=== PATIENT | male | born 1950 | race Caucasian/White ===

== ENCOUNTER 2019-07-25 17:38 | Observation (INO) | payer BC, OTHER, SELFPAY ==
[2019-07-25 18:32] LABS: #Eosinphils 0.1 thou/uL (0.0-0.7); #Lymphocytes 0.6 thou/uL (1.20-3.40); #Monocytes 0.6 thou/uL (0.11-0.59); #Neutrophils 3.8 thou/uL (1.40-6.50); %Basophils 0.5 % (0.0-1.0); %Eosinophils 2.2 % (0.0-10.0); %Lymphocytes 12.5 % (21.0-51.0); %Monocytes 10.8 % (0.0-10.0); %Neutrophils 74.1 % (42.0-75.0); Mean Corpuscular HGB CONC 31.5 g/dL (32.0-36.0); Mean Corpuscular Hemoglobin 28.3 pg (27.0-31.0); Mean Corpuscular Volume 89.7 fL (78.0-98.0); Mean Platelet Volume 7.7 fL (7.4-10.4); Platelet Count 134 thou/uL (130-400); Red Blood Cell (RBC) Count 2.83 mill/uL (4.70-6.10); White Blood Cell (WBC) Count 5.2 thou/uL (4.8-10.8)
[2019-07-25 18:37] LABS: INR-International Normal Ratio 1.2; Prothrombin Time 14.7 SEC (12.0-14.7)
[2019-07-25 19:01] LABS: ALT (SGPT) 16 U/L (8-55); AST (SGOT) 15 U/L (5-34); Albumin 2.9 g/dL (3.4-4.8); Alkaline Phosphatase 165 U/L (40-110); Anion Gap 10 mmol/L (10-20); BUN (Urea Nitrogen) 26 mg/dL (8.4-25.7); Bilirubin, Total 0.8 mg/dL (0.2-1.2); Calc. Creatinine Clearance 0 mL/min (70-130); Calcium 8.7 mg/dL (7.8-10.44); Carbon Dioxide 30 mmol/L (23-31); Chloride 97 mmol/L (98-107); Estimated GFR-MDRD 67; Globulin 3.1 g/dL (2.4-3.5); Glucose 125 mg/dL (83-110); Potassium 4.1 mmol/L (3.5-5.1); Sodium 133 mmol/L (136-145)
--- NOTE | 2019-07-25 19:24 | RAD ---
RIGHT FEMUR: 07/25/19 Four views. HISTORY: Right hip pain. Postoperative changes are seen at the hip with lateral skin viviana. A right hip prosthesis is in carly ce. Components appear in normal appearing position and alignment. No acute fracture identified. IMPRESSION: No evidence of acute fracture. POS: [facility]
--- NOTE | 2019-07-25 19:24 | RAD ---
AP PELVIS: 07/25/19 HISTORY: Fall with injury to hip. Right hip prosthesis is noted. Components appear in normal position and alignment. The bony pelvis ap pears intact. IMPRESSION: No acute fracture identified. POS: [facility]
--- NOTE | 2019-07-25 19:41 | CT ---
NONCONTRAST CT CERVICAL SPINE: 07/25/19 HISTORY: Patient fell at [facility]. Hit forehead. TECHNIQUE: Contiguous axial CT images are obtained through the cervical spine from the skull to the level of the T1 vertebral body. Sagittal and coronal reformat images are provided. FINDINGS: Mild scattered degenerative changes are seen in the cervical spine. No fracture or subluxation is see n. The interspinous distances are within normal limits. No prevertebral soft tissue swelling is seen. Vascular calcifications are seen in the carotid arteries as well as involving the vertebral arteries . Lung apices are clear. IMPRESSION: No acute fracture or subluxation involving the cervical spine. POS: [facility]
--- NOTE | 2019-07-25 19:50 | CT ---
NONCONTRAST CT HEAD: 07/25/19 HISTORY: Recent hip surgery last week. Patient complaining of right hip pain. Head injury after a fall. Patien t hit head. COMPARISON: None. FINDINGS: There are bifrontal areas of encephalomalacia which may be related to either remote areas of infarcti on or secondary to prior injury. A low density focus is seen in the inferior aspect right basal gangl ia which may represent a dilated perivascular space versus a remote lacunar infarction. There is no e vidence of an acute cortical infarction, hemorrhage, mass effect, or midline shift. Mild cerebral vol ume loss is present. There is mild ex vacuo dilatation of the anterior horns of the lateral ventricle s. The visualized paranasal sinuses and mastoid air cells are clear. There is a nondisplaced fracture involving the anterior right frontal bone which is seen just above t he level of the frontal sinuses and extending to the vertex. At the vertex, this fracture does extend posteriorly. There are tiny lucencies seen within the anterior frontal bones bilaterally which may r epresent tiny bur holes. Exact age of the calvarial fracture is uncertain as no overlying soft tissue swelling is present. No prior studies are available for comparison. IMPRESSION: 1. Nondisplaced calvarial fracture involving the anterior frontal bone which begins at the midli ne just above the frontal sinuses and extends superiorly to the vertex where the fracture then extend s posteriorly. The exact age of the fracture is uncertain as there is no overlying soft tissue swelli ng present. 2. Bifrontal areas of encephalomalacia likely related to prior injury or possibly prior infarcti on. 3. Cerebral volume loss. 4. No acute intracranial abnormality is demonstrated. 5. Above findings discussed with Dr. Barker in the Emergency Department on 07/25/19 at 1923 h ours. POS: [facility]
[2019-07-25 20:06] LABS: Magnesium 1.9 mg/dL (1.6-2.6); Phosphorus 3.1 mg/dL (2.3-4.7)
[2019-07-25] MEDS ORDERED: Promethazine HCl 25 MG/ML VIAL IM/IV PRN (20:28)
[2019-07-25] MEDS ORDERED: Ondansetron PF 4 MG/2 ML Vial IVP PRN (20:28)
[2019-07-25] MEDS ORDERED: hydrALAZINE 20 MG/ML VIAL SLOW IVP PRN (20:28)
[2019-07-25] MEDS ORDERED: Dextrose 50% Abboject 50 ML SYRINGE SLOW IVP PRN (20:28)
[2019-07-25] MEDS ORDERED: Dextrose 5% in Water 1,000 ML IV PRN (20:28)
[2019-07-25 20:40] LABS: Bilirubin Negative (Negative); Blood, Urine 1+ (Negative); Clarity Turbid (Clear); Glucose, Urine (Dipstick) Normal (Negative); Leukocyte 500 Leu/uL (Negative); Nitrite Negative (Negative); Protein, Urine (Dipstick) 20 mg/dL (Neg-Trace); RBC/HPF 21-50 HPF (0-3); Squamous Epithelial 0-3 HPF (0-3)
[2019-07-25] MEDS ORDERED: traMADol HCl 50 MG TAB PO PRN ×2 (20:43)
[2019-07-25 20:46] LABS: Bacteria/HPF 1+ HPF (None Seen); WBC/HPF 21-50 HPF (0-3)
[2019-07-25] MEDS ORDERED: PHOS-NAK 1 PKT PACK PO SCH (21:00)
[2019-07-25] MEDS ORDERED: Cipro 250 MG TAB PO SCH (21:45)
--- NOTE | 2019-07-25 23:46 | CON ---
DATE OF CONSULTATION: 07/25/2019 HISTORY OF PRESENT ILLNESS: The patient is a 69-year-old male with a past medical history of type 2 diabetes, hypertension, recently repaired right hip fracture at [facility] with currently staying at the [facility] who presented to the EMS after a mechanical fall while transferring from the wheelchair to the toilet. The patient reports he struck his head, was unsure if he lost consciousness. He initially was confused and unable to tell us the date. He was oriented to person and place. Complaining of some slight dizziness and lightheadedness. He is on Lovenox daily since his right hip surgery. A CT of his head was negative for acute intracranial hemorrhage. There is what appears to be an old skull fracture, but no acute changes. I compared these images to older CT from . PAST MEDICAL HISTORY: Type 2 diabetes, hypertension, hip fracture, TBI. PAST SURGICAL HISTORY: Pacemaker. SOCIAL HISTORY: The patient does not smoke, drink, or use any drugs. He is currently getting rehab at the [facility]. REVIEW OF SYSTEMS: Per HPI. PHYSICAL EXAMINATION: VITAL SIGNS: Blood pressure 129/71, pulse is 60, respiratory rate is 16, temperature is 99.1. The patient is 99% on room air. CONSTITUTIONAL: Awake, alert, in no acute distress. HEENT: Normocephalic. No obvious signs of trauma. Eyes, PERRLA. Extraocular movements intact. ENT, oral mucosa is pink, intact, and moist. NECK: Nontender to palpation. Free active range of motion. No meningismus or nuchal rigidity. CARDIAC: Regular rate and rhythm. RESPIRATORY: Symmetric chest expansion. No evidence of dyspnea. MUSCULOSKELETAL: Has some tenderness diffusely over the proximal right hip with viviana in place. Incision is clean, dry, and intact. He is otherwise nonfocal in his neurologic exam. NEURO: Oriented to person and place, but not time. Normal speech. No focal neurologic deficits. ASSESSMENT AND PLAN: This is a 69-year-old male, status post mechanical fall while transferring from wheelchair to the toilet, who does have a negative CT head initially on arrival to the ER, but is slightly confused and not oriented to the date. I am unsure if the patient has known underlying dementia and has no family at the bedside. He is on Lovenox currently for his right hip fracture. Considering his anticoagulants and likely concussion, we will plan to evaluate him in observation overnight under the Trauma Service and repeat a.m. noncontrast CT head. I have discussed this plan with Dr. Orlando who is in agreement. If repeat a.m. CT is negative and he remains stable neurologically, he could likely be discharged back to the [facility] tomorrow. Job ID: [id number] MTDD
[2019-07-26] MEDS: Senokot S 8.6-50 MG TAB PO SCH ×2 (00:40→08:54)
[2019-07-26] MEDS: Acetaminophen 500 MG TAB PO SCH ×4 (00:41→17:44)
[2019-07-26 05:41] LABS: Anion Gap 9 mmol/L (10-20); BUN (Urea Nitrogen) 21 mg/dL (8.4-25.7); Calc. Creatinine Clearance 90 mL/min (70-130); Calcium 8.4 mg/dL (7.8-10.44); Carbon Dioxide 31 mmol/L (23-31); Chloride 100 mmol/L (98-107); Estimated GFR-MDRD 90; Glucose 100 mg/dL (83-110); Magnesium 1.9 mg/dL (1.6-2.6); Phosphorus 3.5 mg/dL (2.3-4.7); Potassium 3.9 mmol/L (3.5-5.1); Sodium 136 mmol/L (136-145)
[2019-07-26 05:53] LABS: #Eosinphils 0.1 thou/uL (0.0-0.7); #Lymphocytes 0.8 thou/uL (1.20-3.40); #Monocytes 0.5 thou/uL (0.11-0.59); #Neutrophils 2.3 thou/uL (1.40-6.50); %Eosinophils 3.7 % (0.0-10.0); %Lymphocytes 20.7 % (21.0-51.0); %Neutrophils 62.6 % (42.0-75.0); Mean Corpuscular HGB CONC 32.6 g/dL (32.0-36.0); Mean Corpuscular Hemoglobin 29.3 pg (27.0-31.0); Mean Corpuscular Volume 89.9 fL (78.0-98.0); Mean Platelet Volume 7.6 fL (7.4-10.4); Platelet Count 117 thou/uL (130-400); Platelet Morphology Comment Appears Decreased; RBC Distribution Width 14.1 % (11.5-14.5); Red Blood Cell (RBC) Count 2.73 mill/uL (4.70-6.10); White Blood Cell (WBC) Count 3.6 thou/uL (4.8-10.8)
[2019-07-26] MEDS ORDERED: Levothyroxine Sodium 125 MCG TAB PO SCH (06:00)
[2019-07-26] MEDS ORDERED: Cipro 250 MG TAB PO SCH (06:00)
[2019-07-26] MEDS: Labetalol 100 MG TAB PO SCH ×2 (06:14→14:56)
--- NOTE | 2019-07-26 06:32 | PRG ---
THIS IS A HISTORY AND PHYSICAL COMPLETED AT THE TIME OF ADMISSION. DATE OF SERVICE: 07/26/2019 TRAUMA SURGEON: Dr. Foy. CONSULTING PHYSICIAN: Dr. Orlando. HISTORY OF PRESENT ILLNESS: The patient is a 69-year-old male, who presents to the emergency department via EMS after mechanical fall at his rehab facility. The patient was discharged today from [facility] after suffering a right-sided femoral neck fracture and a skull fracture and a TBI. He was trying to transfer from the wheelchair to the toilet and fell. He reported striking the left side of his head on the wall. He also stated that he did have a loss of consciousness. The patient is on prophylactic Lovenox during his hospital stay. He was transferred here. CT scan of the head demonstrated no changes in injuries as well as his previous hip fracture. Neurosurgery did ask the OBS the patient to have head CT due to his Lovenox dosing for DVT prophylaxis. At the time of my evaluation, the patient was at his baseline mentation. REVIEW OF SYSTEMS: All additional 10-point review of systems negative except as indicated above. PAST MEDICAL HISTORY: Pacemaker, right-sided femoral neck fracture, head injury , type 2 diabetes, hypertension, GERD, BPH. PAST SURGICAL HISTORY: The patient is a poor historian. There was not good documentation, but I do know that within the past 10 days that he has had a right femoral neck fracture repair. SOCIAL HISTORY: The patient has a and was discharged today from [facility] to an acute rehab facility where he had a fall. The patient denies drug, alcohol, or tobacco use. MEDICATIONS: 1. Calcium with D. 2. Lovenox. 3. Insulin lispro. 4. Tylenol. 5. Acetylcysteine. 6. Amiodarone. 7. Amlodipine. 8. Calcium carbonate. 9. Clonidine. 10. Famotidine. 11. Ferrous sulfate. 12. Glucagon. 13. Hydrochlorothiazide. 14. Insulin detemir. 15. Labetalol. 16. Levothyroxine. 17. Loperamide. 18. Losartan. 19. Melatonin. 20. NovoLog. 21. MiraLAX. 22. Seroquel. 23. Tamsulosin. ALLERGIES: NO KNOWN DRUG ALLERGIES. PHYSICAL EXAMINATION: PRIMARY SURVEY: Airway intact. Adequate breath sounds bilaterally. 2+ pulses in the bilateral radials, femorals, and DPs. GCS is 14, -1 for verbal. Gross motor and sensation are intact. No lacerations, bruising, or external bleeding. There is a well-healing surgical wound at the right lateral thigh. SECONDARY SURVEY: HEAD: Normocephalic and atraumatic. No gross palpable skull deformities or tenderness. Pupils 3-2, equal, round, reactive to light bilaterally. ENT: No hemotympanum. No epistaxis. No septal hematoma. Midface is stable to manipulation. No blood in the oropharynx. Dentition is intact. No anterior neck injury/crepitus/tenderness. C-SPINE: No step-offs or deformities. C-collar not in place. CHEST: Nontender. No crepitus. No abrasions or ecchymosis. ABDOMEN: Soft, nontender, nondistended. PELVIS: Stable to palpation, nontender. No abrasions or ecchymosis. RECTAL: Deferred. GENITOURINARY: Deferred. EXTREMITIES: No gross deformities. No abrasions or ecchymosis. 2+ pulses in bilateral radials femorals and DPs. BACK/SPINE: No step-offs or deformities or tenderness to palpation of the thoracic or lumbar spine. No abrasions or ecchymosis noted. Gross motor and sensation are intact. NEUROLOGIC: 5/5 strength in bilateral intake assessor, plantar flexion, dorsiflexion. Gross normal sensation x4 extremities. LABORATORY FINDINGS: White count is 5.2, hemoglobin 8.2, hematocrit 25.4, platelets 134. INR 1.2. Sodium 133, potassium 4.1, chloride 97, carbon dioxide 30, BUN 26, creatinine 1.02, glucose 125, phosphorus 3.1, magnesium 1.9. UA is positive for infection. DIAGNOSTIC FINDINGS: CT of the brain demonstrates nondisplaced calvarial fracture involving the anterior frontal bone which begins at the midline just above the frontal sinus and extends superiorly into the vertex where the fracture then extends posteriorly. The exact age of the fracture is uncertain as there is no overlying soft tissue swelling present. Bifrontal areas of encephalomalacia likely related to prior injury and possibly prior infarction, cerebral volume loss. No acute intracranial abnormalities were demonstrated. CT of the C-spine demonstrates no acute fracture or subluxation involving the cerebral spine. X-ray of the pelvis demonstrates no acute fracture identified. X-ray of the femur demonstrates no evidence of acute fracture. ASSESSMENT: 1. Status post mechanical fall from wheelchair. 2. Urinary tract infection. 3. Concussion. 4. Subacute skull fracture. PLAN: The patient will be admitted to OBS per the recommendations of Neurosurgery and repeat head CT in the morning due to the patient is taking prophylactic Lovenox. We will restart all of his home medications as clinically indicated. We will also start the patient on Cipro. The patient will likely be able to be discharged back to his facility tomorrow as long as the CT scan is normal. The patient was discussed with Dr. Foy before this dictation. Job ID: [id number] MTDD
[2019-07-26] MEDS ORDERED: Ferrous Sulfate 325 MG TAB PO SCH ×2 (08:00→10:00)
[2019-07-26] MEDS: cloNIDine 0.1 MG TAB PO SCH ×2 (08:55→15:51)
[2019-07-26] MEDS: Calcium Carbonate + Vit D 1 TAB PO SCH ×2 (08:55→17:44)
[2019-07-26] MEDS ORDERED: Amiodarone 200 MG TAB PO SCH (09:00)
[2019-07-26] MEDS ORDERED: Tamsulosin HCl 0.4 MG CAP PO SCH (09:00)
[2019-07-26] MEDS ORDERED: Prevnar 13-Val Conj/PF 0.5 ML SYRINGE IM ONE (09:00)
[2019-07-26] MEDS ORDERED: Calcium Carbonate 500 MG ChewTAB PO SCH (09:00)
[2019-07-26] MEDS ORDERED: Famotidine 20 MG TAB PO SCH (09:00)
[2019-07-26] MEDS ORDERED: Polyethylene Glycol 3350 17 GM Packet PO SCH (09:00)
[2019-07-26] MEDS ORDERED: Losartan 25 MG TAB PO SCH (09:00)
[2019-07-26] MEDS ORDERED: Amlodipine 10 MG TAB PO SCH (09:00)
[2019-07-26] MEDS ORDERED: Hydrochlorothiazide 25 MG TAB PO SCH (09:00)
--- NOTE | 2019-07-26 09:15 | CT ---
PRELIMINARY REPORT/[facility]/EMERGENCY AFTER HOURS PROCEDURE: PROCEDURE INFORMATION: Exam: CT Head Without Contrast Exam date and time: 07/26/2019 4:30 AM Clinical history: 69 years old, male; Screening exam; Patient HX: F/u fall, PT on lovenox TECHNIQUE: Imaging protocol: Computed tomography of the head without contrast. COMPARISON: No relevant prior studies available. FINDINGS: Brain: No acute stroke or hemorrhage. Advanced bilateral anterior frontal encephalomalacia, likely po st-traumatic. Ventricles: No ventriculomegaly. Bones/joints: Nondisplaced hairline caliber parasagittal skull fracture. Bilateral anterior frontal b urr holes. Sinuses: Visualized sinuses are unremarkable. No fluid levels. Mastoid air cells: Visualized mastoid air cells are well aerated. Soft tissues: Unremarkable. IMPRESSION: No acute stroke or hemorrhage. Nondisplaced hairline caliber parasagittal skull fracture. Thank you for allowing us to participate in the care of your patient. Dictated and Authenticated by: Von Carbone MD 07/26/2019 4:57 AM Central Time ([place] & [place]) FINAL REPORT EMERGENCY AFTER HOURS CT BRAIN WITHOUT CONTRAST: FINDINGS/IMPRESSION: I agree with the findings and impression given in the preliminary report per [facility] physician. 1. No evidence of acute intracranial abnormality. 2. Bifrontal encephalomalacia. POS: [facility]
[2019-07-26] MEDS: Insulin Regular 300 UNITS/3 ML VIAL SC PRN ×2 (11:54→17:44)
--- NOTE | 2019-07-26 13:46 | PRG ---
DATE OF SERVICE: 07/26/2019 SUBJECTIVE: The patient is seen and examined, I agree with Syeda Torres's evaluation on 07/25/2019. The patient is a 69-year-old male admitted to the Trauma Service after a fall while transferring from his wheelchair. He is currently rehabbing from a right hip fracture and on Lovenox. The patient has been slightly confused and was ultimately admitted for a presumptive diagnosis of concussion. The patient has now had two head CTs better normal. IMPRESSION AND PLAN: No active neurosurgical issues. Possible postconcussive symptoms. Okay to resume Lovenox and transfer back to rehab. No further recommendations at this time. Job ID: [id number]
[2019-07-26 15:42] VITALS: BP 136/69; TEMP 97.6
[2019-07-26] MEDS ORDERED: Melatonin 3 MG TAB PO SCH (21:00)
[2019-07-26] MEDS ORDERED: QUETIAPINE FUMARATE 50 MG PO SCH (21:00)
--- NOTE | 2019-07-30 14:26 | DIS ---
DATE OF ADMISSION: 07/26/2019 DATE OF DISCHARGE: 07/26/2019 ADMISSION DIAGNOSES: 1. Status post ground level fall from wheelchair. 2. Urinary tract infection. 3. Concussion. 4. Subacute skull fracture. CONSULTATIONS: Neurosurgery, Dr. Orlando. PROCEDURES: None. SUMMARY: The patient is a 69-year-old man who presented after a fall from his wheelchair while at a rehab facility. The patient was brought to the emergency department where he underwent evaluation and examination and was noted to have the above injuries. The concern was the patient was on Lovenox while at rehab. The patient was admitted there for rehab after open reduction and internal fixation of a femoral neck fracture. The patient also was recovering from a skull fracture and traumatic brain injury. At the time of presentation, the patient was at his baseline. His brain CT did not show any abnormalities other than a subacute skull fracture. He was admitted overnight in observation status. He had no change in his mental status. He had a repeat head CT the following morning, which showed no changes and he was able to be discharged back to rehab. Per instructions by Neurosurgery, he may resume his Lovenox and he can follow up as needed. Job ID: [id number]
== END 2019-07-26 19:22 ==
LOC: ERS 17:38 → SJJU 07-26 00:20
PROVIDERS: ADMIT Specialist; ATTEND Specialist
DX: S02.0XXA Fracture of vault of skull, initial encounter for closed fracture (principal); S06.0X9A Concussion with loss of consciousness of unspecified duration, initial encounter; S72.001A Fracture of unspecified part of neck of right femur, initial encounter for closed fracture; I10 Essential (primary) hypertension; E11.9 Type 2 diabetes mellitus without complications; Z79.01 Long term (current) use of anticoagulants; Z79.4 Long term (current) use of insulin; Z79.899 Other long term (current) drug therapy; W18.30XA Fall on same level, unspecified, initial encounter; Y92.121 Bathroom in nursing home as the place of occurrence of the external cause; Z95.0 Presence of cardiac pacemaker
CPT/HCPCS: 36415; 36416; 70450; 72125; 72170; 80048; 80053; 81003; 81015; 83735; 84100; 85025; 85610; 87077; 87086; 87186; 90471; 90670; 93005; G0009; G0378; G0390; J1815

== ENCOUNTER 2020-02-14 05:35 | Emergency (ER) | payer BC, MEDICARE, OTHER ==
[2020-02-14] MEDS ORDERED: Propofol 1,000 MG/100 ML VIAL IV ONE (05:39)
[2020-02-14] MEDS ORDERED: Acetaminophen 650 MG Suppository ONE (06:03)
[2020-02-14 06:06] LABS: #Basophils 0.1 thou/uL (0.0-0.2); #Eosinphils 0.2 thou/uL (0.0-0.7); #Neutrophils 6.4 thou/uL (1.40-6.50); %Basophils 0.7 % (0.0-1.0); %Eosinophils 2.4 % (0.0-10.0); %Lymphocytes 20.5 % (21.0-51.0); %Monocytes 10.1 % (0.0-10.0); %Neutrophils 66.2 % (42.0-75.0); Hemoglobin 13.5 g/dL (14.0-18.0); Mean Corpuscular HGB CONC 32.5 g/dL (32.0-36.0); Mean Corpuscular Hemoglobin 30.7 pg (27.0-31.0); Mean Corpuscular Volume 94.4 fL (78.0-98.0); Platelet Count 146 thou/uL (130-400); RBC Distribution Width 13.8 % (11.5-14.5); White Blood Cell (WBC) Count 9.7 thou/uL (4.8-10.8)
[2020-02-14] MEDS ORDERED: Lorazepam 2 MG/ML VIAL ONE (06:06)
[2020-02-14] MEDS ORDERED: Cefepime 2 GM VIAL ONE (06:11)
[2020-02-14] MEDS ORDERED: Vancomycin 1 GM/200 ML BAG ONE (06:11)
[2020-02-14 06:23] LABS: Bacteria/HPF None Seen HPF (None Seen); Bilirubin Negative (Negative); Blood, Urine 1+ (Negative); Clarity Clear (Clear); Glucose, Urine (Dipstick) Normal (Negative); Leukocyte Negative Leu/uL (Negative); Nitrite Negative (Negative); Protein, Urine (Dipstick) 50 mg/dL (Neg-Trace); Squamous Epithelial None Seen HPF (0-3); Urobilinogen Normal mg/dL (Less than 2)
[2020-02-14 06:25] LABS: Actual Bicarbonate (HCO3a) 26.5 mEq/L (22-28); Analyzer IN Cardio ER; Base Excess (BEa) 1.7 mEq/L (-2.0 to +3.0); CO2 Tension 42.4 mmHg (35.0-45.0); Calcium, Ionized 1.14 mmol/L (1.12-1.30); Carboxyhemoglobin (COHb) 0.8 gm% (0.0-3.0); Hemoglobin (Hb) 13.6 g/dL (14.0-18.0); O2 Tension (PaO2), arterial 91.6 mmHg (> 70.0); Potassium - ABG Lab 3.99 mmol/L (3.70-5.30); pH, Arterial 7.41 (7.35-7.45)
[2020-02-14 06:31] LABS: Puncture Site RRA
[2020-02-14 06:33] LABS: ALT (SGPT) 16 U/L (8-55); AST (SGOT) 19 U/L (5-34); Albumin 3.7 g/dL (3.4-4.8); Alkaline Phosphatase 108 U/L (40-110); Anion Gap 12 mmol/L (10-20); BUN (Urea Nitrogen) 9 mg/dL (8.4-25.7); Bilirubin, Total 0.6 mg/dL (0.2-1.2); Calc. Creatinine Clearance 0 mL/min (70-130); Calcium 8.6 mg/dL (7.8-10.44); Carbon Dioxide 29 mmol/L (23-31); Chloride 95 mmol/L (98-107); Estimated GFR-MDRD 84; Globulin 2.6 g/dL (2.4-3.5); Glucose 72 mg/dL (83-110); Lipase 13 U/L (8-78); Protein, Total 6.3 g/dL (5.8-8.1); Sodium 132 mmol/L (136-145)
[2020-02-14] MEDS ORDERED: Fosphenytoin Sodium 500 mg/10 ml Vial ONE (07:03)
--- NOTE | 2020-02-14 07:36 | RAD ---
PORTABLE CHEST 1 VIEW: DATE: 02/14/2020. TIME: 5:23 AM. HISTORY: Respiratory failure. FINDINGS: There is an endotracheal tube tip at the level of the clavicular heads. There is a nasogastric tube which can be traced into the abdomen. The heart size is normal. The aorta is tortuous. There is a left-sided pacemaker device in the right basilar calcified granuloma. No lobar consolidation, pneumo thorax, or pleural effusions are seen. POS: [facility]
--- NOTE | 2020-02-14 07:43 | CT ---
CT OF THE BRAIN WITHOUT CONTRAST: HISTORY: Altered mental status. Focal seizure. retirement patient. TECHNIQUE: Multiple contiguous axial images were obtained in a CT of the brain without contrast. FINDINGS: There is stable bifrontal encephalomalacia. Scattered hypodensities in the subcortical and periventr icular white matter are likely secondary to small-vessel ischemic disease. There is no evidence of h ydrocephalus, intracranial hemorrhage, or extraaxial fluid collection. The calvarium and overlying soft tissues were unremarkable. The visualized paranasal sinuses and mas toid air cells are well aerated. IMPRESSION: No evidence of acute intracranial abnormality. POS: [facility]
[2020-02-14 17:20] LABS: SARS-CoV-2 MS2 Positive; SARS-CoV-2 N Gene Negative; SARS-CoV-2 S Gene Negative; SARS-CoV-2 orf1ab Negative
--- NOTE | 2020-02-15 13:24 | EKG ---
Test Reason : Blood Pressure : / mmHG Vent. Rate : 097 BPM Atrial Rate : 097 BPM P-R Int : 188 ms QRS Dur : 150 ms QT Int : 416 ms P-R-T Axes : 052 087 -02 degrees QTc Int : 528 ms Electronic ventricular pacemaker Confirmed by MARGO MARINELLI ([id number]), video tape editor JOANNA BAJWA ([id number]) on 02/15/2020 1:23:26 PM Referred By: Confirmed By:MARGO MARINELLI
== END 2020-02-14 08:49 | disposition short-term general hospital (02) ==
LOC: ERS 05:35
DX: G40.901 Epilepsy, unspecified, not intractable, with status epilepticus (principal); I10 Essential (primary) hypertension; E78.5 Hyperlipidemia, unspecified; E11.9 Type 2 diabetes mellitus without complications; I48.91 Unspecified atrial fibrillation; K21.9 Gastro-esophageal reflux disease without esophagitis; J45.909 Unspecified asthma, uncomplicated; N40.0 Benign prostatic hyperplasia without lower urinary tract symptoms; Z79.899 Other long term (current) drug therapy
CPT/HCPCS: 31500; 51702; 70450; 71045; 80053; 80185; 81003; 81015; 82140; 82805; 83605; 83690; 84484; 85025; 87040; 87635; 87804; 93005; 94002; 94760; 96365; 96366; 96368; 96375; J0692; J2060; J2704; J3370; J3490; Q2009; U0003

== ENCOUNTER 2022-09-13 18:06 | Emergency (ER) | payer BC, MEDICARE ==
[2022-09-13] MEDS ORDERED: Boostrix 0.5 ML (Tdap) VIAL (>/=7 yrs of age) ONE (18:22)
[2022-09-13] MEDS ORDERED: EPINEPHrine 1 MG/10 ML Abboject SYRINGE ONE (18:31)
[2022-09-13] MEDS ORDERED: NOREPINEPHRINE 8 MG/250 ML-D5W 250 ML ONE (18:35)
[2022-09-13] MEDS ORDERED: Ketorolac Tromethamine 30 MG/ML VIAL ONE (19:26)
[2022-09-13] MEDS ORDERED: Bacitracin 1 PK ONE (20:09)
== END 2022-09-13 20:16 | disposition home or self-care (01) ==
LOC: ERS 18:06
DX: S60.222A Contusion of left hand, initial encounter (principal); S60.221A Contusion of right hand, initial encounter; E78.5 Hyperlipidemia, unspecified; I10 Essential (primary) hypertension; E11.9 Type 2 diabetes mellitus without complications; K21.9 Gastro-esophageal reflux disease without esophagitis; W10.8XXA Fall (on) (from) other stairs and steps, initial encounter; Z23 Encounter for immunization
CPT/HCPCS: 72100; 72170; 90471; 90715; 93005; 96374; J0171; J1885

== ENCOUNTER 2022-09-23 07:21 | Inpatient (IN) | payer BC, MEDICARE ==
[2022-09-23] MEDS ORDERED: cloNIDine 0.1 MG TAB ONE (08:04)
[2022-09-23] MEDS ORDERED: Ondansetron PF 4 MG/2 ML Vial ONE (08:04)
[2022-09-23] MEDS ORDERED: Morphine 4 MG/ML VIAL ONE (08:04)
[2022-09-23 08:26] LABS: #Basophils 0.1 thou/uL (0.0-0.2); #Eosinphils 0.4 thou/uL (0.0-0.7); #Lymphocytes 1.2 thou/uL (1.20-3.40); #Monocytes 0.6 thou/uL (0.11-0.59); #Neutrophils 5.8 thou/uL (1.40-6.50); %Basophils 0.7 % (0.0-1.0); %Eosinophils 4.4 % (0.0-10.0); %Lymphocytes 14.7 % (21.0-51.0); %Monocytes 7.7 % (0.0-10.0); %Neutrophils 72.5 % (42.0-75.0); Hemoglobin 12.5 g/dL (14.0-18.0); Mean Corpuscular Hemoglobin 33.6 pg (27.0-31.0); Platelet Count 120 10x3/uL (130-400); RBC Distribution Width 12.8 % (11.5-14.5); Red Blood Cell (RBC) Count 3.73 mill/uL (4.70-6.10)
[2022-09-23 08:37] LABS: INR-International Normal Ratio 1.1; Prothrombin Time 14.5 sec (12.0-14.7)
[2022-09-23 08:38] LABS: PTT 39.8 sec (22.9-36.1)
[2022-09-23 08:49] LABS: ALT (SGPT) 14 U/L (8-55); AST (SGOT) 16 U/L (5-34); Albumin 3.8 g/dL (3.4-4.8); Alkaline Phosphatase 150 U/L (40-110); Anion Gap 14 mmol/L (10-20); BUN (Urea Nitrogen) 19 mg/dL (8.4-25.7); Bilirubin, Total 0.6 mg/dL (0.2-1.2); Calc. Creatinine Clearance 0 mL/min (70-130); Calcium 8.9 mg/dL (7.8-10.44); Carbon Dioxide 29 mmol/L (23-31); Chloride 104 mmol/L (98-107); Estimated GFR 78; Globulin 2.9 g/dL (2.4-3.5); Glucose 210 mg/dL (83-110); Potassium 4.7 mmol/L (3.5-5.1); Protein, Total 6.7 g/dL (5.8-8.1); Sodium 142 mmol/L (136-145)
[2022-09-23] MEDS ORDERED: Losartan 25 MG TAB PO SCH (10:00)
[2022-09-23] MEDS ORDERED: Labetalol HCl 100 MG TAB PO SCH (10:00)
[2022-09-23] MEDS ORDERED: Iopamidol-370 76% 500 ML 1 ML ONE (11:28)
[2022-09-23] MEDS ORDERED: hydrALAZINE 20 MG/ML VIAL ONE (11:38)
[2022-09-23] MEDS ORDERED: Dextrose 50% Abboject 50 ML SYRINGE SLOW IVP PRN (11:44)
[2022-09-23] MEDS ORDERED: HumaLOG 300 UNITS/3 ML VIAL SC PRN (11:44)
[2022-09-23] MEDS ORDERED: Dextrose 5% in Water 1,000 ML IV PRN (11:44)
[2022-09-23] MEDS ORDERED: Acetaminophen 325 MG TAB PO PRN (11:45)
[2022-09-23] MEDS ORDERED: Senokot S 8.6-50 MG TAB PO PRN (11:45)
[2022-09-23] MEDS ORDERED: Ondansetron PF 4 MG/2 ML Vial IVP PRN (11:45)
[2022-09-23] MEDS ORDERED: Ondansetron ODT 4 MG TAB PO PRN (11:45)
[2022-09-23 17:18] VITALS: BMI 31.4
[2022-09-23] MEDS: HumaLOG 300 UNITS/3 ML VIAL SC PRN (18:55)
[2022-09-23] MEDS ORDERED: cloNIDine 0.1 MG TAB PO PRN (23:45)
[2022-09-23] MEDS ORDERED: cloNIDine 0.1 MG TAB PO SCH (23:59)
[2022-09-24] MEDS: HYDROcodone/Acetaminophen 5/325 mg Tablet PO PRN ×3 (00:01→18:05)
[2022-09-24] MEDS: HumaLOG 300 UNITS/3 ML VIAL SC PRN ×2 (05:58→14:54)
[2022-09-24] MEDS: Levothyroxine Sodium 125 MCG TAB PO SCH (05:58)
[2022-09-24] MEDS ORDERED: Bisacodyl 10 MG SUPP PR PRN (07:33)
[2022-09-24] MEDS ORDERED: Labetalol HCl 100 MG TAB PO SCH ×2 (08:00→14:00)
[2022-09-24] MEDS ORDERED: Amiodarone 200 MG TAB PO SCH (09:00)
[2022-09-24] MEDS ORDERED: Hydrochlorothiazide 25 MG TAB PO SCH (09:00)
[2022-09-24] MEDS ORDERED: Amlodipine 10 MG TAB PO SCH (09:00)
[2022-09-24] MEDS: Polyethylene Glycol 3350 17 GM Packet PO SCH (09:01)
[2022-09-24] MEDS: cloNIDine 0.1 MG TAB PO SCH ×3 (09:02→21:34)
[2022-09-24] MEDS: Losartan 25 MG TAB PO SCH (09:02)
[2022-09-24] MEDS: Ferrous Sulfate 325 MG TAB PO SCH (09:03)
[2022-09-24] MEDS: Tamsulosin HCl 0.4 MG CAP PO SCH (09:03)
[2022-09-24] MEDS: Labetalol HCl 100 MG TAB PO SCH (21:33)
[2022-09-24] MEDS: levETIRAcetam 500 MG TAB PO SCH (21:34)
[2022-09-25] MEDS: Levothyroxine Sodium 125 MCG TAB PO SCH (05:29)
[2022-09-25] MEDS: HumaLOG 300 UNITS/3 ML VIAL SC PRN ×2 (05:33→13:09)
[2022-09-25] MEDS: Tamsulosin HCl 0.4 MG CAP PO SCH (10:35)
[2022-09-25] MEDS: levETIRAcetam 500 MG TAB PO SCH ×2 (10:35→20:24)
[2022-09-25] MEDS: Labetalol HCl 100 MG TAB PO SCH ×2 (10:35→20:27)
[2022-09-25] MEDS: Polyethylene Glycol 3350 17 GM Packet PO SCH (10:35)
[2022-09-25] MEDS: Losartan 25 MG TAB PO SCH (10:36)
[2022-09-25] MEDS: NIFEdipine XL 30 MG TAB PO SCH (10:36)
[2022-09-25] MEDS: HYDROcodone/Acetaminophen 5/325 mg Tablet PO PRN (10:37)
[2022-09-25] MEDS: cloNIDine 0.1 MG TAB PO SCH ×3 (10:37→20:27)
[2022-09-25] MEDS: Ferrous Sulfate 325 MG TAB PO SCH (10:37)
[2022-09-25] MEDS: Insulin Glargine 30 UNITS/0.3 ML VIAL SC SCH (20:27)
[2022-09-26] MEDS: Levothyroxine Sodium 125 MCG TAB PO SCH (05:53)
[2022-09-26] MEDS: HumaLOG 300 UNITS/3 ML VIAL SC PRN ×2 (06:40→13:38)
[2022-09-26] MEDS: NIFEdipine XL 30 MG TAB PO SCH (10:38)
[2022-09-26] MEDS: Losartan 25 MG TAB PO SCH (10:38)
[2022-09-26] MEDS: Tamsulosin HCl 0.4 MG CAP PO SCH (10:39)
[2022-09-26] MEDS: levETIRAcetam 500 MG TAB PO SCH (10:39)
[2022-09-26] MEDS: Ferrous Sulfate 325 MG TAB PO SCH (10:39)
[2022-09-26] MEDS: Labetalol HCl 100 MG TAB PO SCH (10:39)
[2022-09-26] MEDS: Insulin Glargine 30 UNITS/0.3 ML VIAL SC SCH (10:40)
[2022-09-26] MEDS: cloNIDine 0.1 MG TAB PO SCH ×2 (10:40→18:04)
[2022-09-26] MEDS: HYDROcodone/Acetaminophen 5/325 mg Tablet PO PRN (10:48)
[2022-09-26 12:15] VITALS: TEMP 98.2
[2022-09-26] MEDS: Polyethylene Glycol 3350 17 GM Packet PO SCH (18:03)
[2022-09-26 18:04] VITALS: BP 150/76
== END 2022-09-26 15:05 | DRG 605 ==
LOC: ERS 07:21 → SJJU 11:22 → OBSVTOIN 09-24 09:54
PROVIDERS: ADMIT Hospitalist; ATTEND Internal Medicine
PROC: 0X9J0ZZ Drainage of Right Hand, Open Approach (ICD-10-PCS; principal; 2022-09-24)
DX: S60.221A Contusion of right hand, initial encounter (principal); S32.019A Unspecified fracture of first lumbar vertebra, initial encounter for closed fracture; Z66 Do not resuscitate; I48.91 Unspecified atrial fibrillation; E03.9 Hypothyroidism, unspecified; N40.0 Benign prostatic hyperplasia without lower urinary tract symptoms; R29.6 Repeated falls; E11.9 Type 2 diabetes mellitus without complications; I11.0 Hypertensive heart disease with heart failure; I50.9 Heart failure, unspecified; Z20.822 Contact with and (suspected) exposure to COVID-19; I16.0 Hypertensive urgency; E78.5 Hyperlipidemia, unspecified; K21.9 Gastro-esophageal reflux disease without esophagitis; W19.XXXA Unspecified fall, initial encounter; S60.00XA Contusion of unspecified finger without damage to nail, initial encounter; Z95.0 Presence of cardiac pacemaker; Z79.890 Hormone replacement therapy
CPT/HCPCS: 36416; 70450; 71260; 72125; 74177; 80053; 85025; 85610; 85730; 87804; 96374; 96375; 97139; J0360; J1815; J2270; J2405; Q9967; U0003; U0005

== ENCOUNTER 2022-12-26 11:21 | Outpatient (CLI) | payer BC, MEDICARE | END 2022-12-26 11:22 | disposition home or self-care (01) | LOC: BICRAD 11:21 | PROVIDERS: ATTEND Neurological Surgery | DX: S32.009S Unspecified fracture of unspecified lumbar vertebra, sequela (principal); S32.010A Wedge compression fracture of first lumbar vertebra, initial encounter for closed fracture | CPT/HCPCS: 72100 ==